=== PATIENT | male | born 1955 | race Caucasian/White ===

== ENCOUNTER 2022-05-31 22:55 | Emergency (ER) | payer OTHER ==
[~2022-05-31] VITALS: Ht 174 cm; Wt 68.2 kg
[2022-06-01] MEDS ORDERED: ketorolac trometh. 30mg/ml inj. IM ONE (01:20)
[2022-06-01] MEDS ORDERED: ACET-3068 PO (01:34)
[2022-06-01 06:00] VITALS: BP 126/72
== END 2022-06-01 06:01 | disposition home or self-care (01) ==
LOC: ER 22:58
DX: R07.81 Pleurodynia (principal); W19.XXXA Unspecified fall, initial encounter; Y93.89 Activity, other specified; Y92.89 Other specified places as the place of occurrence of the external cause; Y99.8 Other external cause status
CPT/HCPCS: 71046; 96372; 99283; J1885